=== PATIENT | female | born 1990 | race Caucasian/White ===

== ENCOUNTER → 2024-08-18 14:34 | Outpatient (REF) | payer BC, SELFPAY | LOC: WDC 14:34 | PROVIDERS: ATTENDING PHYSICIAN Obstetrics & Gynecology; FAMILY PHYSICIAN Nurse Practitioner Family | DX: N63.20 Unspecified lump in the left breast, unspecified quadrant (principal); N63.32 Unspecified lump in axillary tail of the left breast | CPT/HCPCS: 76642 ==

== ENCOUNTER → 2024-10-19 07:52 | Outpatient (REF) | payer BC, SELFPAY | LOC: PNTC 07:52 | PROVIDERS: ATTENDING PHYSICIAN Obstetrics & Gynecology | DX: O09.529 Supervision of elderly multigravida, unspecified trimester (principal); O99.320 Drug use complicating pregnancy, unspecified trimester; O09.819 Supervision of pregnancy resulting from assisted reproductive technology, unspecified trimester | CPT/HCPCS: 59025; 76815 ==

== ENCOUNTER → 2024-10-26 15:29 | Outpatient (REF) | payer BC, SELFPAY | LOC: PNTC 15:29 | PROVIDERS: ATTENDING PHYSICIAN Obstetrics & Gynecology | DX: O09.529 Supervision of elderly multigravida, unspecified trimester (principal); O09.819 Supervision of pregnancy resulting from assisted reproductive technology, unspecified trimester; O99.320 Drug use complicating pregnancy, unspecified trimester | CPT/HCPCS: 36415; 59025 ==

== ENCOUNTER → 2024-11-02 13:24 | Outpatient (REF) | payer BC, SELFPAY | LOC: PNTC 13:24 | PROVIDERS: ATTENDING PHYSICIAN Obstetrics & Gynecology | DX: O09.529 Supervision of elderly multigravida, unspecified trimester (principal); O99.320 Drug use complicating pregnancy, unspecified trimester; O09.819 Supervision of pregnancy resulting from assisted reproductive technology, unspecified trimester | CPT/HCPCS: 59025; 76816 ==

== ENCOUNTER → 2024-11-09 14:52 | Outpatient (REF) | payer BC, SELFPAY | LOC: PNTC 14:52 | PROVIDERS: ATTENDING PHYSICIAN Obstetrics & Gynecology | DX: O09.529 Supervision of elderly multigravida, unspecified trimester (principal); O09.819 Supervision of pregnancy resulting from assisted reproductive technology, unspecified trimester; O99.320 Drug use complicating pregnancy, unspecified trimester | CPT/HCPCS: 59025; 76815 ==

== ENCOUNTER 2024-11-15 19:42 | Inpatient (IN) | payer BC, SELFPAY ==
[2024-11-15 19:47] VITALS: BMI 28.7
[2024-11-15 20:06] VITALS: BP 120/83
[2024-11-15 20:23] LABS: Hematocrit 31.8 % (37.0-47.0); Hemoglobin 11.0 g/dL (12.0-16.0); Mean Corp Hgb Conc. 34.6 g/dL (33.0-37.0); Mean Corpuscular Volume 84.1 fL (81.0-99.0); Nucleated Red Blood Cells % 0 %; Platelet Count 163 10^3/uL (130-400); Red Cell Dist. Width 13.1 % (11.5-14.5)
[2024-11-15] MEDS: CYTOTEC 50 MICROGRAM VAG (20:31)
[2024-11-15 21:22] LABS: ALT (SGPT) 15 U/L (0-35); AST (SGOT) 26 U/L (14-36); Albumin 3.7 g/dl (3.5-5.0); Alkaline Phosphatase 142 U/L (38-126); Blood Urea Nitrogen 13 mg/dl (7-17); Calcium 9.3 mg/dl (8.4-10.2); Carbon Dioxide 20 mmol/L (22-30); Chloride 108 mmol/L (98-107); Estimated Creatinine Clearance 120 ml/min; Glucose 98 mg/dl (70-99); Potassium 3.9 mmol/L (3.5-5.1); Sodium 134 mmol/L (135-145); Total Protein 6.4 g/dl (6.3-8.2); eGFR > 60.00
[2024-11-15] MEDS: LR 1000 IV (22:32)
[2024-11-16] MEDS: FENTANYL/BUPIVACAINE 100 EPIDURAL (00:19)
[2024-11-16] MEDS: SUBLIMAZE 100 MCG EPIDURAL (00:19)
[2024-11-16] MEDS: LR 1000 IV (00:56)
[2024-11-16] MEDS: TRANEXAMIC ACID 100 IV (01:58)
[2024-11-16] MEDS: ANCEF 10 IV (02:03)
[2024-11-16] MEDS: PRENATAL PLUS 1 TABLET PO (09:05)
[2024-11-16] MEDS: COLACE 100 MG PO ×2 (09:05→19:58)
[2024-11-16] MEDS: ZOLOFT 50 MG PO (09:05)
[2024-11-16] MEDS: MOTRIN 600 MG PO ×3 (10:31→23:33)
--- NOTE | 2024-11-17 02:24 | DOWNTIME ---
There was a [employer] Client [employer] Downtime on 11/17/2024 from 0100 to 11/17/2024 at 0220. Downtime documentation of patient's care, including medication administrations, has been reconciled in the electronic record per guidelines. Refer to the
patient's paper chart under the miscellaneous tab to see printed paper medication records and downtime forms.
[2024-11-17 05:15] LABS: Hematocrit 27.8 % (37.0-47.0); Hemoglobin 9.3 g/dL (12.0-16.0)
[2024-11-17] MEDS: PRENATAL PLUS 1 TABLET PO (08:54)
[2024-11-17] MEDS: MOTRIN 600 MG PO ×3 (08:54→21:08)
[2024-11-17] MEDS: COLACE 100 MG PO ×2 (08:55→20:53)
[2024-11-17] MEDS: FEOSOL 325 MG PO (08:55)
[2024-11-17] MEDS: ZOLOFT 50 MG PO (08:55)
[2024-11-17 14:19] LABS: Syphilis/T. pallidum Ab Reflex Negative (Negative)
[2024-11-18] MEDS: MOTRIN 600 MG PO (04:48)
[2024-11-18] MEDS: PRENATAL PLUS 1 TABLET PO (07:30)
[2024-11-18] MEDS: ZOLOFT 50 MG PO (07:30)
[2024-11-18] MEDS: COLACE 100 MG PO (07:30)
== END 2024-11-18 09:58 | disposition home or self-care (01) | DRG 806 ==
LOC: LDRP 19:42
PROVIDERS: ADMITTING PHYSICIAN Obstetrics & Gynecology
PROC: 10907ZC Drainage of Amniotic Fluid, Therapeutic from Products of Conception, Via Natural or Artificial Opening (ICD-10-PCS; 2024-11-15)
PROC: 3E0P7VZ Introduction of Hormone into Female Reproductive, Via Natural or Artificial Opening (ICD-10-PCS; 2024-11-15)
PROC: 10E0XZZ Delivery of Products of Conception, External Approach (ICD-10-PCS; 2024-11-16)
PROC: 0HQ9XZZ Repair Perineum Skin, External Approach (ICD-10-PCS; 2024-11-16)
DX: O48.0 Post-term pregnancy (principal); O71.5 Other obstetric injury to pelvic organs; Z37.0 Single live birth; Z3A.40 40 weeks gestation of pregnancy; O70.0 First degree perineal laceration during delivery
CPT/HCPCS: 36415; 80053; 85014; 85018; 85025; 86780; 86850; 86900; 86901